=== PATIENT | male | born 1990 | race Caucasian/White ===

== ENCOUNTER 2017-06-03 07:43 | Emergency (ER) | payer SELFPAY | END 2017-06-03 08:31 | disposition home or self-care (01) | LOC: FTE 07:43 | DX: Z76.0 Encounter for issue of repeat prescription (principal); I10 Essential (primary) hypertension | CPT/HCPCS: 99281 ==

== ENCOUNTER 2017-07-06 21:15 | Emergency (ER) | payer SELFPAY | END 2017-07-06 21:30 | disposition home or self-care (01) | LOC: E/R 21:30 | DX: Z76.0 Encounter for issue of repeat prescription (principal); I10 Essential (primary) hypertension; Z79.82 Long term (current) use of aspirin | CPT/HCPCS: 99281 ==

== ENCOUNTER 2017-08-02 22:16 | Emergency (ER) | payer SELFPAY | END 2017-08-03 04:06 | disposition home or self-care (01) | LOC: FTE 22:16 | DX: Z76.0 Encounter for issue of repeat prescription (principal); I10 Essential (primary) hypertension; Z79.82 Long term (current) use of aspirin | CPT/HCPCS: 99281 ==

== ENCOUNTER 2017-09-02 06:11 | Emergency (ER) | payer SELFPAY | END 2017-09-02 09:28 | disposition home or self-care (01) | LOC: FTE 06:11 | DX: Z76.0 Encounter for issue of repeat prescription (principal); I10 Essential (primary) hypertension; Z79.82 Long term (current) use of aspirin | CPT/HCPCS: 99281 ==

== ENCOUNTER 2017-09-22 07:51 | Emergency (ER) | payer SELFPAY | END 2017-09-22 09:00 | disposition home or self-care (01) | LOC: FTE 07:51 | DX: I10 Essential (primary) hypertension (principal); Z79.82 Long term (current) use of aspirin | CPT/HCPCS: 99281 ==

== ENCOUNTER 2017-12-12 10:18 | Emergency (ER) | payer MEDICAID | END 2017-12-12 11:25 | disposition home or self-care (01) | LOC: FTE 10:18 | DX: Z76.0 Encounter for issue of repeat prescription (principal); I10 Essential (primary) hypertension; Z79.82 Long term (current) use of aspirin | CPT/HCPCS: 99281; Z7502 ==